=== PATIENT | female | born 1980 | race Caucasian/White ===

== ENCOUNTER → 2020-04-07 | Outpatient (CLI) | payer BC ==
[~2020-04-07] MED LIST: PENI500T PO
--- NOTE | 2020-04-07 15:43 | Diagnostic Imaging Report ---
INDICATION: Left nipple discharge. COMPARISON: No prior studies are available for comparison. 2-D and 3-D bilateral diagnostic mammography was performed. There is a cluster of circumscribed densities in the lower outer left breast approximately 8 to 11 cm from the nipple, perhaps a cluster of cysts. Asymmetric density in the posterior central left breast CC view is noted. This shows normal dispersion on the MLO and ML views, most likely represents asymmetric fibroglandular tissue. No other masses are seen. Retroareolar left breast is unremarkable. Right breast is unremarkable. Axillae are unremarkable. IMPRESSION: BI-RADS 0. 1. Probable cluster of cysts in the lower outer left breast mid to posterior depth, as described. Further evaluation of this area as well as the retroareolar region of the left breast with ultrasound is recommended and will be performed today. ACR BI-RADS Category 0: Incomplete. (Needs additional imaging evaluation). Result letter will be mailed to the patient. Note: At least 10% of breast cancer is not imaged by mammography. Dictated by: Dictated on workstation # [id number]
--- NOTE | 2020-04-07 16:10 | Diagnostic Imaging Report ---
INDICATION: Left-sided nipple discharge as well as circumscribed cluster outer left breast. CORRELATION is made with diagnostic study earlier the same day. Sonographic interrogation of the retroareolar region was performed. No sonographic abnormality is seen. No solid or cystic mass is detected. In addition, the outer left breast was evaluated. There is a cluster of cysts at the 3 o'clock location, 10 cm from the nipple. In aggregate, this measures 8 mm x 5 mm. This likely accounts for the mammographic density. No other sonographic abnormality is detected. IMPRESSION: BI-RADS Category 2. 1. No sonographic abnormality in the retroareolar left breast is identified. 2. Cluster of cysts at the 3 o'clock location of the left breast, accounting for the mammographic density. Dictated by: Dictated on workstation # [id number]
== END ==
LOC: RAD 13:40
PROVIDERS: ATTEND Family Medicine
DX: N60.02 Solitary cyst of left breast (principal)
CPT/HCPCS: 76642; 77066; G0279; 77062